=== PATIENT | male | born 1980 | race Caucasian/White ===

== ENCOUNTER 2020-07-28 10:14 | Outpatient (RCR) | payer BC, SELFPAY | END 2020-09-28 23:59 | LOC: IMMUN 10:14 | PROVIDERS: PCP Student in an Organized Health Care Education/Training Program; Visit Provider Family Medicine | DX: Z23 Encounter for immunization (principal) | CPT/HCPCS: 0001A; 0002A; 91300 ==

== ENCOUNTER 2022-07-11 18:16 | Emergency (ER) | payer OTHER, SELFPAY ==
[2022-07-11 18:17] VITALS: BP 157/95; PULSE 86; RESP 18; TEMP 36.6; O2SAT 97; BMI 39.2
--- NOTE | 2022-07-11 18:37 | CT_ITS ---
STUDY: CTA CHEST REASON FOR EXAM: Male, 42 years old. Dissection, hx hypertension. RADIATION DOSAGE (If Supplied By Facility): CTDIvol = ( 31.74 ) mGy, DLP = ( 1777.95 ) mGycm TECHNIQUE: The examination was performed with the intravenous administration of IV 100mL Isovue-370. Post-processing of the angiographic images was performed, with multiplanar reformation and 3D reconstruction. Individualized dose optimization techniques were used for this CT. COMPARISON: None. FINDINGS: Normal enhancement of the main pulmonary artery and right and left pulmonary arteries. There is limited enhancement of the bilateral peripheral pulmonary arteries. There is no demonstrated pulmonary embolism. Normal thoracic aorta and visualized great vessels. There is no demonstrated aortic dissection. Normal heart and pericardium. Normal mediastinum. Normal hilar regions. Normal visualized trachea and bronchi. The lungs are well expanded. Normal pulmonary parenchyma. Normal pleura. Normal chest wall structures. There are degenerative changes of thoracic spine. Normal visualized upper abdomen. CT/CTA Chest W/WO Contrast IMPRESSION: Normal CTA chest examination, without a demonstrated pulmonary embolism or arterial dissection. Electronically Signed: Rafita Souza MD at 20:11 EDT ,
--- NOTE | 2022-07-11 18:38 | ED.VIS.CHEST ---
HPI History of Present Illness Chief Complaint: Chest Pain Informant: patient and spouse/S.O. Narrative Narrative: Patient states that he has been having some chest pain for about 4 days. He gets this not uncommonly but normally when he stretches his arms out to the side it gets better and goes away. He states he almost feels like he stretched too hard and he has more pain on the left side. It does hurt to move the arm a certain way. He can also get the arm in certain position and the pain is gone. But generally the pain is there pretty much all the time and is exacerbated with certain motion. He is not short of breath but he has felt maybe a little short of breath intermittently. No pleuritic pain. No hemoptysis or cough. No nausea vomiting. No syncope or presyncope. Patient has high blood pressure but no cholesterol diabetes. He has not smoked in a while but he used to. His father had heart disease but not until after his 70th birthday. Patient also has a known history of Marfan's but has never had an echo or scan of his chest or heart. He does not know if he has bicuspid valve or size of his aortic root. He is not having any back pain with this. He does not have tearing or ripping pain. He states its not even the pain is more of just a mild soreness. [facility] Medical History HTN (hypertension) Marfans syndrome Allergy/AdvReac Type Severity Reaction Status Date / Time prednisone AdvReac Other Verified 07/11/22 18:19 Social History Smoking Status: Current some day smoker tobacco type: cigarettes ROS ROS ED Constitutional Constitutional ED: Denies chills or fever(s) Eyes Eyes: Denies change in vision ENT ENT ED: Denies rhinorrhea or sore throat Cardiovascular Cardiovascular: Reports as per HPI and chest pain Respiratory/Chest Respiratory/Chest: Denies cough Gastrointestinal Gastrointestinal: Denies nausea or vomiting Musculoskeletal Musculoskeletal: Denies myalgias Integumentary Denies rash Neurologic Neurologic: Denies headache(s), paresthesias or weakness Endocrine Endocrinology: Denies polydipsia or polyuria Hematologic/Lymphatic Hematologic/Lymphatic: Denies easy bleeding, easy bruising or lymphadenopathy Allergic/Immunologic Allergic/Immunologic ED: Denies urticaria EXAM Physical Exam Narrative Exam Narrative: Patient is awake alert no acute distress. Despite his history, he looks comfortable and nontoxic in bed. He carries on a normal conversation HEENT: No significantly high palate. Mucous membranes are moist. No petechiae Eyes shows no injection or icterus. Neck shows no JVD or stridor Lungs are clear bilaterally. There is mild chest wall tenderness mostly left parasternal. No masses or skin changes. He takes good deep breaths without any pain. Saturations are normal at 97% on room air showing no hypoxia. Heart is regular. Tones are not muffled. I hear no murmur in any area. He has excellent good pulses that are equal left and right. Abdomen is mildly obese but completely nontender shows no CVA or suprapubic tenderness Extremities show no mottling pallor swelling or abnormal pulses Neurologically he is awake alert appropriate with normal speech. Normal coordination and strength. Const Vital Signs: 07/11/22 18:17 07/11/22 18:34 07/11/22 18:39 Temperature 97.8 F Temperature Source Temporal Pulse Rate 86 Respiratory Rate 18 Respiratory Effort Normal Non-Labored Blood Pressure 157/95 H Blood Pressure Mean 115 Pulse Ox 97 Oxygen Delivery Method Room Air Room Air 07/11/22 20:16 Temperature Temperature Source Pulse Rate 69 Respiratory Rate 15 Respiratory Effort Blood Pressure 134/84 H Blood Pressure Mean 100 Pulse Ox Oxygen Delivery Method MDM MDM MDM Narrative Medical decision making narrative: My independent interpretation of the patient's CT did not show signs of enlarged aortic root or dissection. Final reading is also negative. Blood work shows normal CBC. His electrolytes look normal. Troponin is within normal limits despite multiple days of symptoms. Patient's reports that this is very motion sensitive. I think with his history risk factors work-up I think it is safe for discharge. He is still encouraged to follow-up with his doctor for recheck. He still may need echocardiogram as part of his routine work-up and following for his Marfan's. Lab Data Attestation: I reviewed the patient's lab results. Labs: Laboratory Results - last 24 hr 07/11/22 07/11/22 18:40 18:40 WBC 4.9 RBC 5.23 Hgb 15.0 Hct 45.3 MCV 86.6 MCH 28.7 MCHC 33.1 RDW Std Deviation 39.8 RDW Coeff of [place] 12.6 Plt Count 216 MPV 10.4 Immature Gran % (Auto) 0.200 Neut % (Auto) 60.4 Lymph % (Auto) 28.9 [place] % (Auto) 9.3 Eos % (Auto) 0.4 Baso % (Auto) 0.8 Absolute Neuts (auto) 3.0 Absolute Lymphs (auto) 1.42 Nucleated RBC % 0 Sodium 139 Potassium 4.1 Chloride 105 Carbon Dioxide 28.0 Anion Gap 6 BUN 12 Creatinine 0.95 Estim Creat Clear Calc 120.18 Est GFR (MDRD) Af Amer 113 Est GFR (MDRD) Non-Af 94 BUN/Creatinine Ratio 12.7 Glucose 94 Calcium 9.6 Troponin I High Sens 71 Radiography Diagnostic Testing: Clinical Impression(s) from Imaging Studies Chest CTA 07/11/22 18:37 IMPRESSION: Normal CTA chest examination, without a demonstrated pulmonary embolism or arterial dissection. Electronically Signed: Rafita Souza MD at 20:11 EDT , EKG Initial EKG: Comments: My independent her potation the patient's EKG done for chest pain shows a normal sinus rhythm with overall rate of 71. Mild baseline variation but no ST elevation or depression. TN interval QRS duration and QTc are normal. There is no ectopy. Discharge Plan Triage Chief Complaint: Chest Pain ED Provider: Rd Walton Dx/Rx/DC Orders Clinical Impression: Chest pain Instructions: ED Chest Pain, Uncertain Cause Primary Care Provider: Jose Sal Referrals: Jose Sal DO [Primary Care Provider] - 3-5 Days Disposition Disposition: Home, Self Care
[2022-07-11 18:48] LABS: Absolute Lymphocyte Count 1.42 X10^3/uL (0.83-4.51); Basophil# 0.04 X10^3/uL; Basophil% 0.8 % (0-1); Eosinophil# 0.02 X10^3/uL; Eosinophils% 0.4 % (0-5); Hematocrit 45.3 % (40-54); Lymphocyte # 1.42 X10^3/ul (0.83-4.51); Lymphocyte % 28.9 % (19-41); Mean Corp Hgb Conc 33.1 g/dL (32-36); Mean Corpuscular Hgb 28.7 pg (27.0-32.0); Mean Corpuscular Volume 86.6 fL (80-94); Mean Platelet Vol. 10.4 fl (6.2-12.0); Monocyte# 0.46 X10^3/uL; Monocyte% 9.3 % (0-10); NRBC Flagged by Analyzer 0 % (0-5); Neutrophil # 2.97 X10^3/uL (2.7-7.7); Neutrophil % 60.4 % (47-70); Platelet Count 216 K/mm3 (150-450); RBC Distribution Width CV 12.6 % (11.6-14.6); RBC Distribution Width SD 39.8 fl (35.1-43.9); Red Blood Count 5.23 M/mm3 (4.6-6.2); White Blood Count 4.9 K/mm3 (4.4-11.0)
[2022-07-11 19:11] LABS: Anion Gap 6 (5-15); BUN 12 mg/dL (7-18); BUN/Creat Ratio 12.7 RATIO (10-20); Calcium,Total 9.6 mg/dL (8.5-10.1); Chloride 105 mmol/L (98-107); Creatinine, Serum 0.95 mg/dL (0.70-1.30); EST Glomerular Filtration Rate 94 mL/min (>60); Est Glom Filt Rate - Afr Amer 113 mL/min (>60); Estimated Creatinine Clearance 120.18 ml/min; Glucose 94 mg/dL (74-106); Potassium 4.1 mmol/L (3.5-5.1); Sodium Level 139 mmol/L (136-145); Troponin-I HS 71 pg/mL (3.0-78.0)
[2022-07-11 20:16] VITALS: BP 134/84; PULSE 69; RESP 15
[2022-07-11 21:27] VITALS: BP 134/84; PULSE 86; RESP 20
== END 2022-07-11 21:31 | disposition home or self-care (01) ==
PROVIDERS: Emergency Provider Emergency Medicine; PCP Student in an Organized Health Care Education/Training Program; Visit Provider Emergency Medicine
DX: R07.9 Chest pain, unspecified (principal); I10 Essential (primary) hypertension; F17.210 Nicotine dependence, cigarettes, uncomplicated; Q87.40 Marfan syndrome, unspecified
CPT/HCPCS: 71275; 80048; 84484; 85025; 93005; 99284; J7030; Q9967; A4216

== ENCOUNTER → 2023-01-08 | Outpatient (CLI) | payer BC, SELFPAY ==
[2023-01-08 13:17] LABS: Amylase 33 U/L (25-115); Lipase 26 U/L (13-75)
== END | disposition home or self-care (01) ==
PROVIDERS: PCP Student in an Organized Health Care Education/Training Program
DX: R10.10 Upper abdominal pain, unspecified (principal)
CPT/HCPCS: 82150; 83690